=== PATIENT | male | born 1980 | race Caucasian/White ===

== ENCOUNTER 2016-10-21 09:24 | Inpatient (IN) ==
[2016-10-21] MEDS ORDERED: ZOFRAN IV PRN (11:26)
[2016-10-21] MEDS: NS 1,000 ML IV SCH ×3 (12:38→23:15)
[2016-10-21] MEDS: PEPCID IV SCH ×2 (12:54→23:14)
[2016-10-21] MEDS: SODIUM CHLORIDE 0.9% INJ SCH (12:54)
[2016-10-21 13:06] LABS: MANUAL DIFF NEEDED? NO
[2016-10-21 13:23] LABS: BASO% 0.3 % (0.0-0.8); EOS# 0.27 X1000 (0.0-0.7); EOS% 2.3 % (0.0-10.0); HEMATOCRIT 42.9 % (42.0-52.0); HEMOGLOBIN 14.3 g/dL (14.0-18.0); LYMPH% 18.4 % (20.5-51.1); MCH 26.9 PG (27-31); MCHC 33.3 g/dL (33-37); MCV 80.8 FL (81-99); MONO# 1.24 X1000 (0.11-0.59); MONO% 10.4 % (1.7-9.3); MPV 10.4 FL (7.4-10.4); NEUT% 68.6 % (42.2-75.2); PLT 362 X1000 (130-400); RBC 5.31 XMIL (4.7-6.1)
[2016-10-21 13:41] LABS: ALBUMIN 4.3 g/dL (3.5-5.0); CALCIUM 9.3 mg/dL (8.8-10.2); POTASSIUM 4.1 mmol/L (3.5-5.1); TOTAL BILIRUBIN 1.04 mg/dL (0.20-1.00); TOTAL PROTEIN 7.6 g/dL (6.3-8.3)
[2016-10-21 13:48] LABS: HEMOGLOBIN A1C 5.7 % (4.8-6.0)
[2016-10-21 14:07] LABS: CK INDEX 0.4 (0.0-2.5); CK-MB 1.3 ng/mL (0.0-5.0)
[2016-10-21] MEDS: TYLENOL PO PRN ×2 (14:20→21:54)
[2016-10-21] MEDS: LEVAQUIN 250 MG/D5W 250 MG/50 ML IVPB IV SCH (18:40)
--- NOTE | 2016-10-21 21:26 | HISTORY AND PHYSICAL ---
CHIEF COMPLAINT: Sudden onset of abdominal pain associated with dizziness. HISTORY OF PRESENT ILLNESS: Patient had a laparoscopic cholecystectomy by Dr. Gipson 2 weeks ago for acalculous cholecystitis. He is doing very well. He has been back to work and started having some belly cramps, nausea. Pain is going to the neck. He came to my office today and blood pressure was 70/60 upon standing and no fever. Wound incision healing very well. No signs of peritonitis. Upon arrival, he had a slight elevated white cell count, elevation of BUN and creatinine. He was admitted to the hospital for further evaluation. Plan is rule out biliary leak. IV fluids. IV antibiotics and also consult with Dr. Gipson. PAST MEDICAL HISTORY: Metabolic syndrome, obesity, hypertension, chronic back pain. PAST SURGICAL HISTORY: Cholecystectomy. MEDICINES: Lisinopril 20 mg p.o. b.i.d., chlorthalidone 25 daily, Mobic and Zanaflex as needed. ALLERGIES: Keflex and tramadol. SOCIAL HISTORY: Working in [employer]. Single. Lives in [place]. Uses dip. No alcohol. No drug abuse. FAMILY HISTORY: Father of heart attack at the age of 59. Mom is alive with valve replacement. REVIEW OF SYSTEMS: HEENT: Dizziness upon standing. No headache. No vision problem. No earache. No sore throat. Neck: No goiter. No lymphadenopathy. No bruit. Cardiopulmonary: No chest pain, shortness of breath, PND, orthopnea. GI: Abdominal pain, radiating to the back as well as to the neck. Nausea. No altered bowel habits. No bleeding per rectum. : No history of hesitancy, frequency, dysuria, no swelling of legs. Tingling and numbness in the hands and feet. Skin: No skin rashes. Neurologic: No focal symptoms or weakness or seizures. PHYSICAL EXAMINATION: VITAL SIGNS: On examination, afebrile in my office. Blood pressure was 80/60. Tachycardic. HEENT: Atraumatic, normocephalic. Pupils equal, reactive to light. TMs are normal. Dry mucous membranes. NECK: Supple. No lymphadenopathy. No goiter. CHEST: Bilateral air entry. No rales, no wheezing. HEART: Sounds are regular. ABDOMEN: Belly is soft, obese, nontender. No signs of peritonitis. No peripheral edema, cyanosis. No obvious neurological deficits. INVESTIGATIONS: CBC: White cell count 11.9, hematocrit 42, platelets 362,000. SMA7: Sodium 139, potassium 4.1, chloride 98, BUN 32, creatinine 2.2. Magnesium 2. Total bilirubin slightly elevated. ALT and CK was 293. Cardiac enzymes were normal. Amylase was normal. ASSESSMENT AND PLAN: A 36-year-old, white gentleman, morbidly obese admitted to the hospital. Recent lap cholecystectomy. Came in with right-sided abdominal pain associated with hypotension. Differential diagnosis, rule out sepsis, rule out biliary leak. Plan is IV hydration hold the blood pressure medicine, orthostatic blood pressure. IV antibiotics with Levaquin. Dr. Gipson consult. DVT, GI prophylaxis with Lovenox and IV Pepcid. Continue incentive spirometry and probably once the renal function tests come back normal we will do the CT of the abdomen and pelvis, a HIDA scan. We will follow up on the clinical course. cc: Bernabe Conner MD
[2016-10-22 05:54] LABS: MANUAL DIFF NEEDED? NO
[2016-10-22 06:00] LABS: BASO% 0.8 % (0.0-0.8); EOS# 0.46 X1000 (0.0-0.7); EOS% 7.2 % (0.0-10.0); HEMOGLOBIN 12.7 g/dL (14.0-18.0); IMM GRAN# 0.02 X1000 (0.0-0.04); IMM GRAN% 0.3 % (0.0-0.5); LYMPH# 2.47 X1000 (1.2-3.4); LYMPH% 38.5 % (20.5-51.1); MCH 26.5 PG (27-31); MCHC 33.4 g/dL (33-37); MCV 79.3 FL (81-99); MONO% 12.5 % (1.7-9.3); MPV 10.1 FL (7.4-10.4); NEUT% 40.7 % (42.2-75.2); PLT 288 X1000 (130-400); RBC 4.79 XMIL (4.7-6.1)
[2016-10-22 06:28] LABS: ALBUMIN 3.9 g/dL (3.5-5.0); CALCIUM 8.4 mg/dL (8.8-10.2); POTASSIUM 3.9 mmol/L (3.5-5.1); TOTAL BILIRUBIN 0.95 mg/dL (0.20-1.00); TOTAL PROTEIN 6.7 g/dL (6.3-8.3)
[2016-10-22] MEDS: LOVENOX SUBQ SCH (08:55)
--- NOTE | 2016-10-22 11:41 | PROGRESS NOTE ---
DATE: 10/22/2016 SUBJECTIVE: The patient complains of abdominal pain. Able to pee. No nausea, vomiting. REVIEW OF SYSTEMS: None reported. OBJECTIVE: Vital Signs: On examination, he is afebrile. Vitals are stable. He is not orthostatic. Input and output positive for 15 mL. HEENT: Exam is within normal limits. Neck: Supple. No lymphadenopathy. Chest: Clear. Heart: Sounds are regular. Abdomen: Belly is soft, nontender. Good bowel sounds. No masses palpable. Extremities: No peripheral edema, cyanosis. No obvious neurological deficits. INVESTIGATIONS: White cell count 6.4, hematocrit 38, platelet 288. SMA 7: Sodium 138, potassium 3.9, BUN 34, creatinine 1.8, and calcium 8.4. LFTs were normal. ASSESSMENT AND PLAN: 1. Right-sided abdominal pain and hypotension, resolving. Continue intravenous hydration. 2. Azotemia, improving. 3. Hypertension. Hold the medications. 4. Elevated liver function tests coming down on intravenous Levaquin. 5. Deep vein thrombosis prophylaxis with Lovenox and gastrointestinal prophylaxis with intravenous Pepcid. We will discuss with Dr. Gipson. Clinically he looks fine. We will do the computed tomography scan of the abdomen and pelvis and will follow up. LEVEL OF DOCUMENTATION: 25 minutes. cc: Bernabe Conner MD
--- NOTE | 2016-10-22 12:01 | Diag Imaging Result Doc PS360 ---
EXAM: CT ABDOMEN AND PELVIS WITHOUT INTRAVENOUS CONTRAST, BUT WITH ORAL CONTRAST. HISTORY: Postop surgery TECHNIQUE: COMPARISON: 08/09/2014 FINDINGS: The gallbladder has been removed. Normal spleen and adrenal glands. Normal noncontrasted pancreas and liver. No renal stones. No hydronephrosis. Normal aorta. There are small para-aortic lymph nodes. No bowel obstruction. No inflammation about the cecum. No abscess. The urinary bladder is only mildly distended. The prostate is not enlarged. IMPRESSION: 1.Cholecystectomy 2.No abscess Electronically signed by Reilly Patel 10/22/2016 11:05 AM
[2016-10-22] MEDS: SODIUM CHLORIDE 0.9% INJ SCH (12:36)
[2016-10-22] MEDS: PEPCID IV SCH ×2 (12:36→20:30)
[2016-10-22] MEDS: NS 1,000 ML IV SCH (14:53)
[2016-10-22] MEDS: LEVAQUIN 250 MG/D5W 250 MG/50 ML IVPB IV SCH (17:50)
[2016-10-22] MEDS: TYLENOL PO PRN (20:29)
[2016-10-23 05:34] LABS: MANUAL DIFF NEEDED? NO
[2016-10-23 05:39] LABS: BASO% 0.7 % (0.0-0.8); HEMATOCRIT 36.7 % (42.0-52.0); HEMOGLOBIN 12.4 g/dL (14.0-18.0); LYMPH% 38.5 % (20.5-51.1); MCH 26.7 PG (27-31); MCHC 33.8 g/dL (33-37); MCV 78.9 FL (81-99); MONO# 0.76 X1000 (0.11-0.59); MONO% 13.3 % (1.7-9.3); MPV 9.8 FL (7.4-10.4); NEUT% 40.5 % (42.2-75.2); PLT 264 X1000 (130-400); RBC 4.65 XMIL (4.7-6.1)
[2016-10-23] MEDS: PEPCID IV SCH (05:49)
[2016-10-23 06:00] LABS: ALBUMIN 3.9 g/dL (3.5-5.0); CALCIUM 8.9 mg/dL (8.8-10.2); POTASSIUM 4.2 mmol/L (3.5-5.1); TOTAL BILIRUBIN 0.58 mg/dL (0.20-1.00); TOTAL PROTEIN 6.5 g/dL (6.3-8.3)
[2016-10-23] MEDS: NS 1,000 ML IV SCH (06:39)
[2016-10-23 07:36] VITALS: BP 131/75
[2016-10-23] MEDS: LOVENOX SUBQ SCH (09:07)
--- NOTE | 2016-10-25 11:08 | DISCHARGE SUMMARY ---
ADMISSION DATE: 10/21/2016 DISCHARGE DATE: 10/23/2016 DISCHARGE DIAGNOSES: 1. Abdominal pain due to musculoskeletal pain. 2. Hypotension due to dehydration. 3. Azotemia due to hypotension. OTHER DIAGNOSES: 1. Morbid obesity. 2. Anxiety/depression. 3. Hypertension. 4. Chronic back pain. CONSULTATIONS: Dr. Gipson. PROCEDURES: Laparoscopic cholecystectomy. BRIEF HISTORY: Please see the H and P that was done on 10/21/2016. In brief, he is a 36-year-old white obese gentleman who recently had a laparoscopic cholecystectomy for acalculous cholecystitis, also suffering from chronic pain in the back. Had a laparoscopic cholecystectomy and he had been doing very well until 2 weeks postop, with abdominal pain and low blood pressure in my office. He was found to have azotemia. Patient was on blood pressure medicine. HOSPITAL COURSE: The patient was given IV fluids, also given empirical antibiotic treatment. He had some tenderness at the site of the laparotomy scars. Exam was benign. Followup hydration test, renal function came back normal. Patient was seen by Dr. Gipson. CT of the abdomen and pelvis did not show any evidence of hematoma or bile leak. Findings were reassuring. He has been tolerating diet very well. Patient's mother works in the Pharmacy Department. Apparently, he has a lot of anxiety issues also. Dr. Gipson also recommended to lose weight and referred to Dr. Luda Michael. LABORATORY AND IMAGING: CBC: White cell count 5.7, hematocrit 36, platelets 264,000. SMA 7: Sodium 137, potassium 4.2, chloride 99, CO2 of 28, BUN 30, creatinine 1.5. LFTs were normal. CT scan of the abdomen and pelvis: No inflammation above the cecum. No abscess. Prostate is not enlarged. No hematoma. DISCHARGE INSTRUCTIONS: 1. Hold the blood pressure medicines for 2 weeks, which include chlorthalidone and lisinopril. 2. Continue [place] for pain as needed. 3. Zanaflex for spasms. 4. Wellbutrin 100 p.o. b.i.d. for anxiety and depression. 5. Follow up in my office next week. cc: MD Shahzad Noble
== END 2016-10-23 09:57 | disposition home or self-care (01) ==
LOC: DIRADM 09:24 → 4N 10:24
PROVIDERS: ADMIT Internal Medicine; ATTEND Internal Medicine